=== PATIENT | female | born 1955 | race Caucasian/White ===

== ENCOUNTER 2016-12-15 08:39 | Day surgery (SDC) | payer OTHER ==
[~2016-12-15] VITALS: Ht 160 cm; Wt 62.0 kg
[~2016-12-15 08:39] MED LIST: ALPR1TAB7 PO; ASCO100089 PO; CALC600T20 PO; CHOL200025 PO; ESTR0.5T PO; FLUO20CA25 PO; GABA-500 PO; HYDR-4003 PO; LISI-571 PO; MAGN27TA2 PO; METH-313 PO; MUPI15CR11 TOP; NPR500T PO; OMEG300C3 PO; SULF1TAB7 PO
[2016-12-15] MEDS ORDERED: Lidocaine PF 2% 10 mL Inj ONE (08:40)
[2016-12-15] MEDS ORDERED: Iohexol 240 mg/mL 10 mL Inj ONE (08:40)
[2016-12-15] MEDS ORDERED: Dexamethasone 10 mg/mL Inj ONE (08:40)
[2016-12-15 09:15] VITALS: BP 129/86; PULSE 82; RESP 18; O2SAT 99
--- NOTE | 2016-12-15 14:57 | PCM.PROC ---
Procedure Note Date of Service: December 15, 2016 Pre Procedure Diagnosis: PROCEDURE: RIGHT L4 transforaminal epidural steroid injection PRE-PROCEDURE DIAGNOSIS: Lumbar radiculopathy POST-PROCEDURE DIAGNOSIS: same INDICATION:-year-old patient with RIGHT leg pain consistent with lumbar radiculopathy PERFORMED BY: Zac Restrepo MD DESCRIPTION OF PROCEDURE: Patient was met in the holding area. Consent was signed, site was confirmed and all questions were answered. was taken to the procedure suite and placed prone on the procedure table. The image intensifier was manipulated to minimize double shadows of the vertebral endplates above the neural foramen to be addressed. The image intensifier was rotated 30 ipsilaterally for Wale dog appearance. A 25- gauge 5-inch Quincke needle was advanced towards the target area using tunnel view. The image intensifier was then changed to the lateral view and the needle was advanced towards the "safe triangle". Proper positioning was confirmed in the AP view so the tip of the needle ended at the most inferolateral aspect of the superior pedicle. Proper positioning was confirmed with injection of radiopaque contrast dye which showed delineation of the nerve root as well as epidural spread. The contrast was then injected under live fluoroscopy to rule out inadvertent vascular uptake. 1 cc of 2% Lidocaine was injected slowly. After 1 minute the patient was found to be able to move the legs appropriately with no signs or symptoms of vascular uptake of the lidocaine 10 mg dexamethasone was injected followed by another 1/2 cc of 2% Lidocaine . ANESTHESIA: Local EBL: None. No Blood Products Used COMPLICATIONS: None SPECIMENS: None POST-PROCEDURE DISPOSITION: Patient was returned to the holding area in stable condition. They were discharged home when all discharge criteria were met. Evaluation/Physical Exam before discharge revealed: DISCHARGE MEDICATIONS: (none, unless otherwise noted) FOLLOW UP: Scheduled follow-up Zac Restrepo MD * Pain Management * Anesthesiology .ED: Y: Patient given care and follow up instructions Zac Restrepo MD December 15, 2016 14:57
== END 2016-12-15 23:59 | disposition home or self-care (01) ==
LOC: END 08:39
PROVIDERS: ATTEND Anesthesiology Pain Medicine
PROC: 3E0R33Z Introduction of Anti-inflammatory into Spinal Canal, Percutaneous Approach (ICD-10-PCS; principal; 2016-12-15 09:15)
DX: M54.16 Radiculopathy, lumbar region (principal)
CPT/HCPCS: 64483; J1100